=== PATIENT | female | born 1935 | race Caucasian/White ===

== ENCOUNTER 2019-01-27 12:56 | Observation (INO) ==
[2019-01-27] MEDS ORDERED: cloNIDine HCl 0.1 MG TABLET PO ONE (13:15)
--- NOTE | 2019-01-27 13:18 | Emergency Department Note ---
Disposition Clinical Impression: Acute hypotension Hypertension Qualifiers: Hypertension type: essential hypertension Qualified Code(s): I10 - Essential (primary) hypertension Disposition: Admitted As Inpatient Condition: Fair Time of Disposition: 15:45 General Adult HPI - General Chief complaint: ED General Medical Stated complaint: Elevated blood pressure Time Seen by Provider: 01/27/19 13:15 Source: patient Mode of arrival: private vehicle Limitations: age Nursing Notes Reviewed: Yes Vital Signs Reviewed: Yes - History of Present Illness HPI Narrative: Patient reports she had recent fall and some soreness in her low back. She had an x-ray performed yesterday for back which does not show fracture but her blood pressure was elevated to about 200/100. She states this was through [facility] ED. She called her family doctor's office today and was told to come here for further evaluation prior to they are adjusting her blood pressure medicines. She states that she does not feel different now than she ever does. She has been taking her normal blood pressure medicine since states they were increased a month ago due to elevated blood pressure. She gets occasional headaches but no headache and no different headaches at this time. She denies any visual changes. She denies any extremity numbness, tingling or weakness. She denies neck pain or stiffness. She states she is occasionally dizzy with standing but that has been going on for more than a year and is no different at this time. She denies alteration in mental status, speech or balance. She denies increased use of any stimulant, caffeine, cold preparation or energy drink. Her blood pressure on arrival here is 236/108. She is on metoprolol and accordingly her heart rate is 53. Onset (ago): day(s) (2) Pain Scale: 0 Associated symptoms: Denies: confusion, chest pain, cough, diaphoresis, fever/chills, headaches, loss of appetite, malaise, nausea/vomiting, rash, seizure, shortness of breath, syncope, weakness Treatments Prior to Arrival: none - Related Data Home Medications Medication Instructions Recorded Confirmed Aspirin [Lo-Dose Aspirin EC] 81 mg PO DAILY 09/17/17 01/27/19 Cholecalciferol (D-3) [Vitamin D] 1,000 unit PO DAILY 09/17/17 01/27/19 Cyanocobalamin (Vitamin B-12) 1,000 mcg PO DAILY 09/17/17 01/27/19 [Vitamin B-12] Famotidine [Pepcid] 20 mg PO BID PRN 09/17/17 01/27/19 Ferrous Sulfate 325 mg PO DAILY 09/17/17 01/27/19 HYDROcodone/Acet 5/325 mg [[place] 1 tab PO Q4H PRN 09/17/17 01/27/19 5-325 mg] Metoprolol [Lopressor] 25 mg PO BID 09/17/17 01/27/19 Pravastatin Sodium [Pravachol] 20 mg PO HS 09/17/17 01/27/19 Vitamin E 1,000 unit PO DAILY 09/17/17 01/27/19 amLODIPine [Norvasc] 5 mg PO DAILY 09/17/17 01/27/19 hydroCHLOROthiazide 12.5 mg PO DAILY 09/17/17 01/27/19 [Hydrochlorothiazide] Allergies Allergy/AdvReac Type Severity Reaction Status Date / Time No Known Allergies Allergy Verified 09/17/17 12:34 All systems ED: reviewed and negative except as stated. Past Medical History - Past Medical History Attestation: Yes The following information was validated with the patient. Source: patient, old records reviewed, nursing notes reviewed Medical history: Reports: arthritis, GERD, hyperlipidemia, hypertension, RA, renal disease, TIA Surgical history: Reports: appendectomy, herniorrhaphy, hysterectomy, knee replacement Psychiatric history: Reports: no psych history - Social History Smoking Status: Never smoker Smokeless Tobacco Status: No Alcohol use: Reports: none Drug use: Reports: none Physical Exam - General Limitations: no limitations General appearance: alert, in no apparent distress - Head Head exam: atraumatic, normocephalic, normal inspection - Eye Eye exam: Present: normal appearance, PERRL, EOMI. Absent: scleral icterus, conjunctival injection - ENT ENT exam: normal exam, normal oropharynx, mucous membranes moist - Neck Neck exam: Present: normal inspection, full ROM, trachea midline. Absent: tenderness, lymphadenopathy - Chest Chest inspection: Present: normal inspection, symmetric chest wall rise - Respiratory Respiratory exam: Present: normal lung sounds bilaterally. Absent: respiratory distress, wheezes, prolonged expiratory phase - Cardiovascular Cardiovascular exam: Present: regular rate, normal rhythm, bradycardia, normal heart sounds - Abdominal Exam Abdominal exam: Present: soft, Non-Tender, normal bowel sounds. Absent: tenderness, distention, guarding, rebound, rigidity, pulsatile mass - Extremities Exam Extremities exam: Present: normal inspection, full ROM, normal capillary refill. Absent: tenderness, pedal edema, calf tenderness - Expanded Lower Extremity Exam Neurovascular/Tendon exam: Present: normal capillary refill. Absent: motor deficit, sensory deficit, tendon deficit Gait: observed and normal - Back Exam Back exam: Present: normal inspection, full ROM. Absent: tenderness - Neurological Exam Neurological exam: Present: alert, oriented X3, CN II-XII intact, normal gait, reflexes normal. Absent: motor sensory deficit - Psychiatric Psychiatric exam: Present: normal affect, normal mood. Absent: agitated, anxious - Skin Skin exam: Present: warm, dry, intact, normal color. Absent: diaphoresis Course Course Narrative: Patient is given a dose of clonidine orally and baseline lab work and EKG have been ordered. Upon return of testing further care in medications will be discussed with her primary care provider. 1402: With return of lab work, the patient's heart rate still at 51, respiratory rate 14, oxygen saturation 97% a blood pressure 189/82. She is on Lopressor 25 mg twice a day, amlodipine 5 mg daily and hydrochlorothiazide 12.5 mg daily by our record. When I review her previous blood pressures, she seems to usually run about 150/90. I have placed a call to her primary care provider to discuss her recheck and medication recommendations. 1415: The patient's presentation and all testing is been discussed with Dr. Segura. He did wish to see her next week and an appointment for February 01 at 10:45 AM has been given. He additionally desired we contact to her cardiolo gist, Dr Delgado to discuss her blood pressure medicines. He states with a relative bradycardia and degree of hypertension, they have been according most of her blood pressure medicines. I have reviewed the medicines that she is on and he states that their office has her on metoprolol 25 twice a day and amlodipine 10 mg daily. He did not have a record of her being on hydrochlorothiazide. 1452: I have had a return call from Dr. Delgado. Patient remains asymptomatic but her pressure dropped to 103 systolic. This is rechecked and found to be running at about 80 and her heart rate still in the mid 40s. Cardiology recommended her observation for 24 hours even without the episode of hypotension due to her age. With the bradycardia and history of recent hypertension and the fall, he recommended scanning her and as intracranial pressure could produce this. I have instituted IV with an IV fluid bolus and ordered the CT head. I advised the patient that she will likely need inpatient observation. Maritime Engineer recommended no changes in her medicines at this time although she may need addition of a medication like Imdur if her pressure is rebounding and high. 1540: Patient's presentation, testing and response to medications have been discussed with Dr. Nascimento. She currently has a blood pressure of 106/56 and heart rate of 48. He is agreeable with continuing some IV fluids and observing her blood pressures carefully and doing when necessary medications. Verbal orders have been obtained for her observation. Vital Signs Temperature 98.1 F 01/27/19 12:57 Pulse Rate 53 01/27/19 12:57 Respiratory Rate 16 01/27/19 12:57 Blood Pressure 236/108 01/27/19 12:57 O2 Sat by Pulse Oximetry 95 01/27/19 12:57 Temperature 98.1 F 01/27/19 12:57 Pulse Rate 46 01/27/19 15:49 Respiratory Rate 16 01/27/19 15:49 Blood Pressure 106/56 01/27/19 15:49 O2 Sat by Pulse Oximetry 97 01/27/19 15:49 Oxygen Delivery Oxygen Delivery Room Air Medical Decision Making - Medical Records Medical records reviewed: Yes I reviewed the patient's medical records. - Lab Data Lab results reviewed: Yes I reviewed the patient's lab results. Result diagrams: 01/27/19 13:33 01/27/19 13:33 Lab Results 01/27/19 01/27/19 Range/Units 13:33 13:33 WBC 5.8 (4.3-11.1) K/mcL RBC 4.42 (3.82-4.97) M/mcL Hgb 13.2 (11.5-15.4) g/dL Hct 40.4 (35.3-44.9) % MCV 91.4 (83.0-100.0) fL MCH 29.9 (28.0-33.3) pg MCHC 32.7 (31.6-35.5) g/dL RDW 13.6 (11.5-14.5) % Plt Count 140 (140-400) K/mcL MPV 12.0 (9.4-12.4) fL Immature Gran % 0.3 (0-4) % Seg Neutrophils % 59.8 % Lymphocytes % 28.1 % Monocytes % 8.0 % Eosinophils % 2.4 % Basophils % 1.4 % Neutrophils # 3.4 (1.6-8.9) K/mcL Lymphocytes # 1.6 (0.6-4.6) K/mcL Monocytes # 0.5 (0.0-1.3) K/mcL Eosinophils # 0.1 (0.0-0.6) K/mcL Basophils # 0.1 (0.0-0.2) K/mcL Platelet Estimate Decreased L (Normal) Clumped Platelets Few A (Not Present) Sodium 140 (136-145) mEq/L Potassium 4.3 (3.5-5.1) mEq/L Chloride 107 (98-107) mEq/L Carbon Dioxide 26 (23-29) mEq/L BUN 19 (8-23) mg/dL Creatinine 1.12 (0.60-1.20) mg/dL Est GFR ( Amer) 56 L (> 60) Est GFR (Non-Af Amer) 46 L (> 60) BUN/Creatinine Ratio 17 (6-26) Glucose 100 (70-105) mg/dL Calculated Osmolality 292 (280-300) Calcium 9.6 (8.6-10.3) mg/dL Troponin I < 0.03 (< 0.04) ng/mL - Radiology Data Radiology results reviewed: Yes I reviewed the patient's radiology results. CT head is performed. This is reviewed on bone and soft tissue windows. There is no evidence for acute intracranial bleed, shift, mass or edema. Mastoids and sinuses appear normal. There is no fracture evident. This is on my interpret ation. Impressions Head CT 01/27/19 15:30 IMPRESSION: No acute intracranial abnormality. D/ / Nate Banks MD / Nate Banks MD Interpreting Provider: Nate Banks MD - EKG Data EKG #1 EKG attestation: Yes I reviewed and interpreted this EKG. EKG results narrative: Second EKG is performed at 3 PM. This shows sinus bradycardia with a rate of 45, axis of -33, SD interval 162 and a QT/QTC 510/442. Patient has evidence for LVH with some lateral strain. I do not see any acute ST or T-wave changes for ischemia or infarction. This is on my interpretation. EKG shows normal: sinus rhythm, axis, intervals, QRS complexes, ST-T waves Rate: bradycardia Rhythm: PVC's Voltage: c/w LVH Interpretation: no acute changes, nonspecific ST-T wave changes, LVH
[2019-01-27 13:48] LABS: Basophils # 0.1 K/mcL (0.0-0.2); Basophils % 1.4 %; Eosinophils # 0.1 K/mcL (0.0-0.6); Eosinophils % 2.4 %; Hematocrit 40.4 % (35.3-44.9); Hemoglobin 13.2 g/dL (11.5-15.4); Immature Granulocytes % 0.3 % (0-4); Lymphocytes # 1.6 K/mcL (0.6-4.6); Lymphocytes % 28.1 %; Mean Corpuscular HGB Conc 32.7 g/dL (31.6-35.5); Mean Corpuscular Hemoglobin 29.9 pg (28.0-33.3); Mean Corpuscular Volume 91.4 fL (83.0-100.0); Monocytes # 0.5 K/mcL (0.0-1.3); Neutrophils # 3.4 K/mcL (1.6-8.9); Platelet Count 140 K/mcL (140-400); Red Blood Count 4.42 M/mcL (3.82-4.97); Red Cell Distribution Width 13.6 % (11.5-14.5); Segmented Neutrophils % 59.8 %; White Blood Count 5.8 K/mcL (4.3-11.1)
[2019-01-27 13:57] LABS: BUN/Creatinine Ratio 17 (6-26); Blood Urea Nitrogen 19 mg/dL (8-23); Calcium 9.6 mg/dL (8.6-10.3); Carbon Dioxide 26 mEq/L (23-29); Chloride 107 mEq/L (98-107); Glucose 100 mg/dL (70-105); Osmolality,Calculated 292 (280-300); Potassium 4.3 mEq/L (3.5-5.1); Sodium 140 mEq/L (136-145); eGFR For African Americans 56 (> 60); eGFR For Non-African Americans 46 (> 60)
[2019-01-27 14:00] LABS: Troponin I < 0.03 ng/mL (< 0.04)
[2019-01-27 14:27] LABS: Platelet Clumps Few (Not Present); Platelet Estimate Decreased (Normal)
[2019-01-27] MEDS ORDERED: 0.9 % Sodium Chloride 1,000 ML IVC ONE (14:58)
[2019-01-27] MEDS ORDERED: 0.9 % Sodium Chloride 1,000 ML IVC SCH (15:00)
[2019-01-27] MEDS ORDERED: MOM Conc 10 ML UD.LIQ PO PRN (15:57)
[2019-01-27] MEDS ORDERED: Famotidine 20 MG TABLET PO PRN ×2 (15:57→17:37)
[2019-01-27] MEDS ORDERED: Mag Hydrox/Al Hydrox/Simeth 30 ML UDC PO PRN (15:57)
[2019-01-27] MEDS ORDERED: *HR* HYDROcodone/Acet 5/325 mg TABLET PO PRN (15:57)
[2019-01-27] MEDS ORDERED: Naloxone 0.4 MG/ML INJ IVP PRN (15:57)
[2019-01-27] MEDS ORDERED: Ondansetron ODT 4 MG TAB.RAPDIS SL PRN (15:57)
[2019-01-27] MEDS: 0.9 % Sodium Chloride 1,000 ML IVC SCH ×3 (15:58→18:19)
[2019-01-28] MEDS: 0.9 % Sodium Chloride 1,000 ML IVC SCH (06:11)
[2019-01-28] MEDS ORDERED: Cyanocobalamin (B-12) 1,000 MCG TABLET PO SCH (09:00)
[2019-01-28] MEDS ORDERED: Aspirin Enteric Coated 81 MG Tablet PO SCH (09:00)
[2019-01-28] MEDS ORDERED: Cholecalciferol (D-3) 1,000 UNIT (25MCG) TABLET PO SCH (09:00)
[2019-01-28] MEDS ORDERED: Vitamin E 200 UNIT (90MG) CAPSULE PO SCH (09:00)
[2019-01-28] MEDS ORDERED: hydroCHLOROthiazide 25 MG TABLET PO SCH (09:00)
[2019-01-28] MEDS ORDERED: amLODIPine 5 MG TABLET PO SCH (09:00)
[2019-01-28] MEDS ORDERED: amLODIPine 5 MG TABLET PO STA (09:26)
--- NOTE | 2019-01-28 10:13 | Internal Med History&Physical ---
Date of Encounter: 01/28/19 Time of Encounter: 09:30 Assessment and Plan (1) Hypertension Current visit: Yes Status: Acute Acute hypotension emergency room has resolved. Blood pressure has returned elevated range at this time. Metoprolol was held on admission due to bradycardia. Amlodipine will be given. She states she feels back to her baseline and wishes to be discharged home. Qualifiers: Hypertension type: essential hypertension Qualified Code(s): I10 - Essential (primary) hypertension (2) CKD (chronic kidney disease) stage 3, GFR 30-59 ml/min Current visit: Yes Status: Chronic Present on all labs since July 2014. Internal Medicine - H&P: HPI Chief complaint: Hypertension Admitted From: Emergency Dept Plans for Post Hospital Care: Home History of present illness: Ms. Solis is a 84 year old female who was directed to come to emergency room after she reported to her PCP office her blood pressure was elevated at approximately 200/100. She was given clonidine in emergency room and blood p ressure dropped significantly to 103 systolic. She was admitted to [facility] floor for overnight observation. She states she feels back to her baseline now. She has history of long-standing hypertension and reports significant fluctuation in home blood pressure readings with systolic ranging from 120-200. She reports metoprolol was recently increased to 25 mg twice a day. She denies use of amlodipine or hydrochlorothiazide listed on her home medication sheet. Cardiovascular history is negative for RI heart failure angina DVT or pulmonary embolus. Past Med Surg Social Fam HX - Past Medical History Medical history: arthritis, GERD, hyperlipidemia, hypertension, RA, renal disease, TIA Additional medical history: Cervical degenerative disc disease Psychiatric history: no psych history - Past Surgical History Surgical History: appendectomy, herniorrhaphy, hysterectomy, knee replacement Additional surgical history: broken ankle -. right and left Total Knee revision 2013, Hysterectomy, Esophageal operation - Social History Smoking Status: Never smoker Smokeless Tobacco Status: No Alcohol use: none Drug use: none Internal Medicine - H&P: Meds Aspirin [Lo-Dose Aspirin EC] 81 mg PO DAILY 09/17/17 [History] Famotidine [Pepcid] 20 mg PO BID PRN 09/17/17 [History] Ferrous Sulfate 325 mg PO DAILY 09/17/17 [History] Metoprolol [Lopressor] 25 mg PO BID 09/17/17 [History] Pravastatin Sodium [Pravachol] 20 mg PO HS 09/17/17 [History] Allergy/AdvReac Type Severity Reaction Status Date / Time No Known Allergies Allergy Verified 09/17/17 12:34 All Systems PM: A 10-system review of systems was performed and is negative for pertinent findings except as documented above in the HPI. Review of systems: Gen.: Her weight has increased from 62.596 kg on 08/17/2014 to 67.614 kg on admission now Cardiovascular: As per history of present illness Respiratory: She is a lifelong nonsmoker and denies chronic lung disease GI: She has history of hiatal hernia and underwent laparoscopic surgical repair 2014 at [facility]. She has history of GERD. She denies disorders of her liver gallbladder or exocrine pancreas : She denies kidney or bladder disorders but review of available labs show chronic kidney disease. Endocrine: She has hyperlipidemia but denies diabetes or thyroid disease. Neurologic: She denies large distribution strokes or seizures. Hematology/oncology: She denies blood disorders cancers or anemia Psychiatric: She denies anxiety depression or other mental health issues [place] skeletal: She has DJD but denies gout or osteoporosis. She has had 2 right knee replacements, left knee replacement, left ankle fracture, and right wrist fracture with surgical repair 2017. - Constitutional Vitals: Temp Pulse Resp BP Pulse Ox 98.4 F 52 16 193/77 96 01/28/19 06:46 01/28/19 06:48 01/28/19 06:46 01/28/19 06:48 01/28/19 06:46 Exam: Gen.: She is a well-developed well-nourished female resting comfortably in bed who appears in no acute distress at present time HEENT: Head is atraumatic and normocephalic. Eyes: EOMI. There is no scleral icterus. Mouth: Mucosa is moist. Neck: Supple and nontender. There is no thyromegaly or adenopathy noted. Heart: Regular without murmurs gallops or ectopics Lungs: No wheezes or crackles are heard. Abdomen: Soft and nontender. No masses or guarding are noted. Extremities: There is no cyanosis edema or clubbing noted. Dorsalis pedis and posterior tibial pulses are trace to 1+ palpable bilaterally. Neurologic: Mental status: She is talkative and a good historian. Cranial nerves: Smile is symmetric. Forehead wrinkles bilaterally. Tongue protrudes midline. EOMI. Motor: There is no pronator drift. Cerebellar: Finger to nose is intact bilaterally. Skin: Warm and dry Internal Med - H&P Results - Labs CBC & Chem 7: 01/27/19 13:33 01/27/19 13:33 Labs: Short CBC 01/27/19 Range/Units 13:33 WBC 5.8 (4.3-11.1) K/mcL Hgb 13.2 (11.5-15.4) g/dL Hct 40.4 (35.3-44.9) % Plt Count 140 (140-400) K/mcL Neutrophils # 3.4 (1.6-8.9) K/mcL BMP 01/27/19 13:33 Sodium 140 Potassium 4.3 Chloride 107 Carbon Dioxide 26 BUN 19 Creatinine 1.12 Glucose 100 Calcium 9.6 Cardiac Enzymes 01/27/19 Range/Units 13:33 Troponin I < 0.03 (< 0.04) ng/mL - Impressions ITS Impressions Head CT 01/27/19 15:30 IMPRESSION: No acute intracranial abnormality. D/ / Nate Banks MD / Nate Banks MD Interpreting Provider: Nate Banks MD
--- NOTE | 2019-01-28 10:26 | Discharge Summary ---
Date of Encounter: 01/28/19 Time of Encounter: 09:30 - Discharge Diagnosis (1) Hypertension Priority: Primary Status: Acute Qualifiers: Hypertension type: essential hypertension Qualified Code(s): I10 - Essential (primary) hypertension (2) CKD (chronic kidney disease) stage 3, GFR 30-59 ml/min Priority: Secondary Status: Chronic Hospital course: Ms. Solis is a 84 year old female who was directed to come to emergency room after she reported to her PCP office her blood pressure was elevated at a pproximately 200/100. She was given clonidine in emergency room and blood pressure dropped significantly to 103 systolic. She was admitted to [facility] for overnight observation. I saw her on January 28 and performed the history physical and discharge. Metoprolol was held on admission due to bradycardia. She denied use of HCTZ at home. She was given amlodipine after her blood sugar romain above desirable level during hospitalization and will continue this at discharge. When I saw her she was asymptomatic and felt stable for discharge home. Metoprolol dose will be decreased to 12.5 mg twice a day lessen bradycardia. Amlodipine will be started at 5 mg daily. She will continue to check blood pressures at home and report to her PCP who can adjust medications further as needed. She will follow with Dr. Kushal Segura within 1 week. - Time Spent with Patient Total time spent providing and/or coordinating discharge services: - Discharge Medications Prescriptions: New amLODIPine [Norvasc] 5 mg PO NOW #30 tablet Continued Ferrous Sulfate 325 mg PO DAILY Aspirin [Lo-Dose Aspirin EC] 81 mg PO DAILY Famotidine [Pepcid] 20 mg PO BID PRN PRN Reason: Heartburn Pravastatin Sodium [Pravachol] 20 mg PO HS Changed Metoprolol [Lopressor] 12.5 mg PO BID #0 Home Medications: Aspirin [Lo-Dose Aspirin EC] 81 mg PO DAILY 09/17/17 [History] Famotidine [Pepcid] 20 mg PO BID PRN 09/17/17 [History] Ferrous Sulfate 325 mg PO DAILY 09/17/17 [History] Pravastatin Sodium [Pravachol] 20 mg PO HS 09/17/17 [History] Metoprolol [Lopressor] 12.5 mg PO BID #0 01/28/19 [Rx] amLODIPine [Norvasc] 5 mg PO NOW #30 tablet 01/28/19 [Rx] Allergies/Adverse Reactions: Allergy/AdvReac Type Severity Reaction Status Date / Time No Known Allergies Allergy Verified 09/17/17 12:34 Date of admission: 01/27/19 15:52 Primary care physician: Bairon Segura - Constitutional Vitals: Temp Pulse Resp BP Pulse Ox 98.4 F 52 16 193/77 96 01/28/19 06:46 01/28/19 06:48 01/28/19 06:46 01/28/19 06:48 01/28/19 06:46 - Patient Status Disposition: Home, Self-Care Condition: Fair - Discharge Instructions Follow Up With: Bairon Segura DO [Primary Care Provider] - 1 week - Diet and Activity Activity: resume usual activities as tolerated Diet: advance to your usual diet
[2019-01-28 13:20] VITALS: BP 183/67
--- NOTE | 2019-01-29 09:41 | Electrocardiograph Report ---
[place] [id number] Test Date: 2019-01-27 Pat Name: Nell Solis Department: EDP-16 Room: [facility] Gender: F Outside Sales Professional: : 1935 Requested By: Luigi Loya Order Number: [id number] Reading MD: Raj Swenson Measurements Intervals [place] Rate: 50 P: 37 AL: 161 QRS: -34 QRSD: 105 T: -34 QT: 432 QTc: 394 Interpretive Statements Sinus rhythm Ventricular premature complex Abnormal R-wave progression, late transition LVH with secondary repolarization abnormality Electronically Signed On 01-29-2019 9:40:01 EDT by Raj Swenson
--- NOTE | 2019-01-29 10:12 | Electrocardiograph Report ---
[place] [id number] Test Date: 2019-01-27 Pat Name: Nell Solis Department: EDP-16 Room: [facility] Gender: F Appeals Examiner: : 1935 Requested By: Luigi Loya Order Number: [id number] Reading MD: Raj Swenson Measurements Intervals [place] Rate: 45 P: 16 OR: 162 QRS: -33 QRSD: 101 T: -27 QT: 510 QTc: 442 Interpretive Statements Sinus bradycardia Abnormal R-wave progression, early transition Left ventricular hypertrophy Nonspecific T abnormalities, lateral leads Electronically Signed On 01-29-2019 10:11:22 EDT by Raj Swenson
== END 2019-01-28 13:40 | disposition home or self-care (01) ==
LOC: EMEROOPIK 12:56 → INPPIK 12:56
PROVIDERS: ADMIT Internal Medicine; ATTEND Internal Medicine